=== PATIENT | female | born 1990 | race Two or more races ===

== ENCOUNTER 2025-03-15 00:08 | Emergency (ER) | payer SELFPAY ==
[~2025-03-15] VITALS: Ht 154.9 cm; Wt 60.3 kg
[2025-03-15 02:29] LABS: Hematocrit 35.8 % (36.0-46.0); Hemoglobin 12.6 g/dL (12.2-16.2); Mean Corpuscular Hemoglobin 31.4 pg (28.0-32.0); Mean Corpuscular Volume 89.6 fL (80.0-100.0); Nucleated Red Blood Cells % 0.0 %
[2025-03-15 02:48] LABS: Albumin 4.2 g/dL (3.2-4.8); Alkaline Phosphatase 69 U/L (46-116); Anion Gap 10 (5-15); BUN/Creatinine Ratio 11.6 (10.0-20.0); Calcium 9.1 mg/dL (8.7-10.4); Carbon Dioxide 24 mmol/L (20-31); Chloride 105 mmol/L (98-107); Glucose 86 mg/dL (74-106); Potassium 3.9 mmol/L (3.5-5.1); Sodium 139 mmol/L (136-145); Total Protein 7.5 g/dL (5.7-8.2)
[2025-03-15 02:49] LABS: Bilirubin, Total 0.3 mg/dL (0.2-1.0)
[2025-03-15 02:57] LABS: Alanine Aminotransferase 41 U/L (7-40); Blood Urea Nitrogen 5 mg/dL (9-23)
--- NOTE | 2025-03-15 03:18 | ED.PDOC ---
HPI Allergic reaction HPI Comments 35-year-old Gabonese-speaking female presents with a chief complaint of generalized rash, with the associated itchy sensation, for over the past 3 weeks. Patient reports on being seen and evaluated and treated for symptoms multiple times in the past. She has no been seen by outpatient dermatology for issue. 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 Denies any further acute symptoms. REVIEW OF SYSTEMS: General: No fever, no chills, or fatigue HEENT: No sore throat, no earache, no congestion, no neck pain. Cardiac: No chest pain. No palpitations. Lungs: No shortness of breath, no cough. GI: No nausea, no vomiting, no diarrhea, no constipation, no abdominal pain : No dysuria, frequency, or urgency. No hematuria. Musculoskeletal: No joint pain , no joint swelling, no extremity edema. Skin: Rash and itching Neuro: No headache, no dizziness, no weakness PHYSICAL EXAM: General: Awake, alert and oriented. No acute distress. Skin: Urticarial rash to face, chest, abdomen, bilateral arms and legs. Otherwise, skin is warm, dry and intact. Appropriate color for ethnicity. HEENT: The head is normocephalic and atraumatic. Conjunctivae are clear without exudates or hemorrhage. Sclera is non-icteric. EOM are intact. No signs of nystagmus. Eyelids are normal in appearance without swelling or lesions. Oral mucosa is pink and moist Neck: The neck is supple with normal range of motion. No JVD. Cardiac: Heart rate and rhythm are normal. No murmurs, gallops, or rubs are auscultated. Respiratory: No signs of respiratory distress. Lung sounds are clear in all lobes bilaterally without rales, rhonchi, or wheezes. Abdominal: Abdomen is soft, non-tender without distention, guarding or rigidity. Bowel sounds are present and normoactive in all four quadrants. Extremities: Upper and lower extremities are atraumatic in appearance without deformity or edema. Neurological: The patient is awake, alert and oriented to person, place, and time with normal speech. Speech is clear. There is no facial asymmetry. Psychiatric: Appropriate mood and affect. Good judgement and insight. Chief Complaint: Rash Time Seen by MD: 01:50 Allergies: Coded Allergies: NO KNOWN ALLERGIES (Unverified , 03/15/25) Mode of Arrival: Ambulatory Was a procedure done? Was a procedure done?: No Differential diagnosis (all) Differential Diagnosis: Angioedema, Contact Dermatitis, Urticaria X-Ray, Labs, Meds, VS Vital Signs Date Time Temp Pulse Resp B/P (MAP) Pulse Ox O2 Delivery O2 Flow Rate FiO2 03/15/25 00:12 97.9 97 19 116/69 97 97.9 Lab Test 03/15/25 02:13 Range/Units White Blood Count 10.6 4.4-10.8 10^3/uL Red Blood Count 4.00 4.0-5.20 10^6/uL Hemoglobin 12.6 12.2-16.2 g/dL Hematocrit 35.8 L 36.0-46.0 % Mean Corpuscular Volume 89.6 80.0-100.0 fL Mean Corpuscular Hemoglobin 31.4 28.0-32.0 pg Mean Corpuscular Hemoglobin Concent 35.1 32.0-36.0 g/dL Red Cell Distribution Width 13.8 11.8-14.3 % Platelet Count 238 140-450 10^3/uL Mean Platelet Volume 10.0 6.9-10.8 fL Neutrophils (%) (Auto) 63.2 37.0-80.0 % Lymphocytes (%) (Auto) 21.0 10.0-50.0 % Monocytes (%) (Auto) 9.5 0.0-12.0 % Eosinophils (%) (Auto) 6.0 0.0-7.0 % Basophils (%) (Auto) 0.3 0.0-2.0 % Neutrophils # (Auto) 6.7 1.6-8.6 10 ^3/uL Lymphocytes # (Auto) 2.2 0.4-5.4 10 ^3/uL Monocytes # (Auto) 1.0 0-1.3 10 ^3/uL Eosinophils # (Auto) 0.6 0-0.8 10 ^3/uL Basophils # (Auto) 0 0-0.2 10 ^3/uL Nucleated Red Blood Cells 0.0 % Sodium Level 139 136-145 mmol/L Potassium Level 3.9 3.5-5.1 mmol/L Chloride Level 105 98-107 mmol/L Carbon Dioxide Level 24 20-31 mmol/L Anion Gap 10 5-15 Blood Urea Nitrogen 5 L 9-23 mg/dL Creatinine 0.43 L 0.550-1.02 mg/dL Glomerular Filtration Rate Calc 132 >90 mL/min BUN/Creatinine Ratio 11.6 10.0-20.0 Serum Glucose 86 74-106 mg/dL Calcium Level 9.1 8.7-10.4 mg/dL Total Bilirubin 0.3 0.2-1.0 mg/dL Aspartate Amino Transferase (AST) 33 13-40 U/L Alanine Aminotransferase (ALT) 41 H 7-40 U/L Alkaline Phosphatase 69 46-116 U/L Total Protein 7.5 5.7-8.2 g/dL Albumin 4.2 3.2-4.8 g/dL Time of 1ST Reevaluation: 02:00 Reevaluation 1ST: Unchanged Patient Education/Counseling: Need For Follow Up Family Education/Counseling: No Family Present SEPSIS Sepsis Screen Date sepsis recognized/suspect: Mar 15, 2025 Time Sepsis recognized/suspect: 0012 Recent Procedure: No On Antibiotic Therapy: No Respiratory Rate >20: No Heart Rate >90: No Temp<36 C (96.8 F) or >38.3 C: No SBP <90 or MAP <65 mmHG: No New Acute Mental Status Change: No Is the patient on CPAP, BIPAP,: No Vital Signs Date Time Temp Pulse Resp B/P (MAP) Pulse Ox O2 Delivery O2 Flow Rate FiO2 03/15/25 00:12 97.9 97 19 116/69 97 97.9 Laboratory Tests Test 03/15/25 02:13 White Blood Count 10.6 10^3/uL (4.4-10.8) Departure 1 Departure Time of Disposition: 03:47 Impression: Primary Impression: Rash Disposition: 01 HOME / SELF CARE / HOMELESS Condition: Stable Additional Instructions: INSTRUCCIONES DE HARRY DE Urgencias Instrucciones: Savanna atentamente todas las instrucciones proporcionadas en nelda paquete. Aunque le hayan dado el harry del Departamento de Emergencias, esto no significa que tenga un "certificado de buena janette". Hoy no se herrera realizado ningn diagnstico definitivo para ariela sntomas. Es posible que ests en proceso de desarrollar sohail enfermedad grave. Es por eso que debe regresar al servicio de urgencias sin falta si presenta algn sntoma nuevo o que empeora (especialmente si ariela sntomas incluyen dolor en el pecho, dificultad para respirar, dolor abdominal, fiebre, dolor de maricruz, confusin, dificultad para kristen o caminar). Tambin es muy importante que consulte a un mdico de atencin primaria dentro de los prximos 3 a 5 amin para realizar un seguimiento. Si no puede conseguir sohail nyla, regrese al servicio de urgencias para sohail nueva evaluacin. Los corticosteroides (Prednisone), cuando se administran leah el embarazo, pueden representar sohail amenaza potencial, marilyn solo en raras ocasiones. Los frmacos pueden cruzar la placenta, lo que puede afectar el desarrollo y potencialmente causar problemas ambrocio bajo peso al nacer, paladar hendido y supresin adrenal. La investigacin herrera demostrado que un era tratamiento con corticosteroides es generalmente seguro para la madre y para el desarrollo , aunque pueden ocurrir efectos secundarios menores ambrocio dolor en el sitio de la inyeccin. Los efectos secundarios son ms evidentes si un paciente recibe ms de sohail dosis de corticosteroides. Si un paciente tiene diabetes preexistente o gestacional, los corticosteroides pueden afectar el control del azcar en samira. Es importante seguir la dosis y las indicaciones dadas por el proveedor. Erupcin: Instrucciones de cuidado Tabla de contenidos Ariela instrucciones de cuidado Ambulance Driver puedes cuidarte en casa? Cundo debe pedir ayuda? Crditos Ariela instrucciones de cuidado Sohail erupcin es cualquier irritacin o inflamacin de la piel. Las erupciones tienen muchas causas posibles, que incluyen alergia, infeccin, enfermedad, calor y estrs emocional. La atencin de seguimiento es sohail parte clave de scott tratamiento y seguridad. Asegrese de programar y asistir a todas las citas, y llame a scott mdico si tiene problemas. Tambin es sohail buena idea conocer los resultados de ariela pruebas y mantener sohail lista de los medicamentos que marcelino. Ambulance Driver puedes cuidarte en casa? Lave el rigoberto solo con agua. El jabn puede empeorar la sequedad y la picazn. Seque. Coloque paos fros y hmedos sobre la erupcin para reducir la picazn. Mantngase fresco y mantngase alejado steve. Deje la erupcin abierta al aire la mayor parte del tiempo posible. A veces, la vaselina puede ayudar a aliviar la incomodidad causada por sohail erupcin. Sohail locin humectante, ambrocio Cetaphil, tambin puede ayudar. La locin de calamina puede ayudar con las erupciones causadas por el contacto con algo (ambrocio sohail planta o jabn) que irrita la piel. ana 3 o 4 veces al da. Si scott mdico le recet sohail crema, saranya segn las indicaciones. Si scott mdico le recet medicamentos, tmelos exactamente ambrocio se lo indicaron. Si la picazn afecta scott sueo, pregntele a scott mdico si puede mat un antihistamnico que podra reducir la picazn y causarle sueo, ambrocio difenhidramina (Benadryl). Tenga cuidado con los medicamentos. Savanna y siga todas las instrucciones de la etiqueta. Cundo debe pedir ayuda? Llame a scott mdico ahora o busque atencin mdica inmediata si: Tiene signos de infeccin, ambrocio: Aumento del dolor, hinchazn, calor o enrojecimiento. Chika garcía que salen del rigoberto. Pus drenando del rigoberto. Fiebre. Tiene dolor en las articulaciones junto con la erupcin. Est atento a los cambios en scott janette y asegrese de comunicarse con scott mdico si: Scott sarpullido est cambiando o empeorando. Por ejemplo, llame si tiene dolor junto con la erupcin, la erupcin se est extendiendo o tiene ampollas nuevas. No mejora despus de 1 semana. 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 e-Prescriptions Prednisone (Prednisone) 20 Mg Tab 20 MG PO DAILY for 2 Days, #2 TAB Prov: CHADWICK TUCKER MD 03/15/25 Comments MDM: Patient well-appearing, nontoxic. Advised prompt follow-up with PCP, return to the ED with any new, worsening or concerning symptoms. Decision regarding hospitalization or escalation of hospital level of care: Risks and benefits of admission for further treatment of patient's condition was considered however due to patient's stable condition patient will be discharged to follow up closely or return to care for worsening of condition or inability to follow up. Critical Care Note Critical Care Time?: No Stability Stability form required: No Heart Score Heart Score: Heart Score Response (Comments) Value History N/A 0 EKG N/A 0 Age N/A 0 Risk Factors N/A 0 Troponin N/A 0 Total 0 I personally scribed for CHADWICK TUCKER MD ([email or web address]) on 03/15/25 at 03:18. Electronically submitted by Charlie Lopez ([email or web address]). CHADWICK TUCKER MD Mar 15, 2025 03:18
[2025-03-15] MEDS: predniSONE 20 MG TAB PO ONE (03:48)
[2025-03-15 03:50] VITALS: BP 102/60; PULSE 85; RESP 20; TEMP 97.9; O2SAT 100
[2025-03-15] MEDS ORDERED: PRED20TA2 PO (03:53)
== END 2025-03-15 05:05 | disposition home or self-care (01) ==
LOC: ER 00:08
DX: O26.91 Pregnancy related conditions, unspecified, first trimester (principal); R21 Rash and other nonspecific skin eruption; Z3A.01 Less than 8 weeks gestation of pregnancy
CPT/HCPCS: 36415; 80053; 85025; 99283; J7512